=== PATIENT | female | born 1965 | race Caucasian/White ===

== ENCOUNTER 2016-07-24 13:14 | Emergency (ER) | payer MEDICAID ==
[2016-07-24 13:33] VITALS: BP 148/93
--- NOTE | 2016-07-24 14:24 | EDM.PDOC ---
ED HPI GENERAL MEDICAL PROBLEM - General Chief Complaint: General Stated Complaint: SORES ALL OVER BODY Time Seen by Provider: 07/24/16 13:45 Source of Information: Reports: Patient History Limitations: Reports: No limitations - History of Present Illness INITIAL COMMENTS - FREE TEXT/NARRATIVE: 51-year-old female who is new to the area has broken out in blistering weeping rashes on her hands, under her right arm and in the suprapubic area. She was treated with Diflucan which hasn't helped, she has been exposed to MRSA. No fevers or chills. Onset: gradual (Over the last 6-7 days) Associated Symptoms: Denies: fever/chills Generalized Pain Score (Numeric/FACES): 10 - Related Data Allergies Allergy/AdvReac Type Severity Reaction Status Date / Time aspirin Allergy Cannot Verified 07/24/16 13:35 Remember Penicillins Allergy Cannot Verified 07/24/16 13:35 Remember Sulfa (Sulfonamide Allergy Hives Verified 07/24/16 13:35 Antibiotics) Home Meds: Home Meds Albuterol Sulfate [Ventolin Hfa] 108 mcg INH Q6H PRN 07/24/16 [History] Albuterol/Ipratropium [DuoNeb 3.0-0.5 MG/3 ML] 3 ml INH Q6H 07/24/16 [History] Cetirizine [ZyrTEC] 10 mg PO DAILY 07/24/16 [History] Ibuprofen [Motrin] 800 mg PO Q8H PRN 07/24/16 [History] Mometasone/Formoterol [Dulera 200-5 MCG] 2 puff INH BID 07/24/16 [History] Montelukast Sodium [Singulair] 10 mg PO BEDTIME 07/24/16 [History] Nystatin [Nystatin Crm] 1 applic TOP TID 07/24/16 [History] Past Medical History Respiratory History: Reports: COPD, Other (see below) Other Respiratory History: growths in lungs Gastrointestinal History: Reports: Cholelithiasis Neurological History: Reports: Migraines Psychiatric History: Reports: PTSD - Infectious Disease History Infectious Disease History: Reports: None - Past Surgical History Respiratory Surgical History: Reports: None GI Surgical History: Reports: Cholecystectomy Neurological Surgical History: Reports: None Musculoskeletal Surgical History: Reports: None, Knee replacement Social & Family History - Tobacco Use Smoking Status *Q: Current Some Day Smoker Years of Tobacco use: 30 Packs/Tins Daily: 1 Used Tobacco, but Quit: Yes Month Tobacco Last Used: febuary Second Hand Smoke Exposure: No - Caffeine Use Caffeine Use: Reports: Coffee, Soda, Tea - Recreational Drug Use Recreational Drug Use: No ED ROS GENERAL - Review of Systems Review Of Systems: See Below Constitutional: Denies: fever, chills Respiratory: Denies: shortness of breath GI/Abdominal: Denies: Nausea, Vomiting : Reports: no symptoms Musculoskeletal: Reports: other (Slight increased swelling in her left knee but no redness or warmth) ED EXAM, GENERAL - Physical Exam Exam: See Below Exam Limited By: No limitations General Appearance: alert, no apparent distress Respiratory/Chest: no respiratory distress Neurological: alert, oriented Skin Exam: Other (Patient has reddened papular and vesicular lesions on an erythematous base over the suprapubic area and lower abdomen, also isolated blistering lesions on the right hand and under the right axillary area) Course - Vital Signs Last Recorded V/S: Last Vital Signs Temp 98.9 F 07/24/16 13:31 Pulse 85 07/24/16 13:31 Resp 18 07/24/16 13:31 BP 148/93 H 07/24/16 13:31 Pulse Ox 94 L 07/24/16 13:31 - Orders/Labs/Meds Orders: Active Orders 24 hr Category Date Time Status CULTURE WOUND + SMEAR [RM] Stat Lab 07/24/16 14:22 Results - Re-Assessments/Exams Free Text/Narrative Re-Assessment/Exam: 07/24/16 14:22 Alcohol was rubbed over the lesion on her right hand, clear fluid was expelled and cultured. Patient was placed on clindamycin 300 mg 3 times a day given 10 day supply and should recheck at the clinic to establish primary care in the next 3-5 days. She can return sooner if worsening such as fever or reaction to the medication. Departure - Departure Time of Disposition: 14:49 Disposition: Home, Self-Care 01 Condition: good Clinical Impression: Rash and nonspecific skin eruption Instructions: Rash Referrals: PCP,None [Primary Care Provider] - Forms: ED Department Discharge Care Plan Goals: Take antibiotic 2 pills 3 times a day, keep wounds clean and call the clinic tomorrow morning to establish an appointment for recheck later in the week. Return sooner if worsening such as fever or increased pain or unable to take the medication. - My Orders Last 24 Hours: My Active Orders 07/24/16 14:22 CULTURE WOUND + SMEAR [RM] Stat - Assessment/Plan Last 24 Hours: My Active Orders 07/24/16 14:22 CULTURE WOUND + SMEAR [RM] Stat
== END 2016-07-24 14:50 | disposition home or self-care (01) ==
LOC: JP.ED 13:14
DX: R21 Rash and other nonspecific skin eruption (principal); J44.9 Chronic obstructive pulmonary disease, unspecified; F17.210 Nicotine dependence, cigarettes, uncomplicated; Z90.49 Acquired absence of other specified parts of digestive tract; Z96.659 Presence of unspecified artificial knee joint; Z79.899 Other long term (current) drug therapy; Z88.0 Allergy status to penicillin; Z88.2 Allergy status to sulfonamides; Z88.8 Allergy status to other drugs, medicaments and biological substances
CPT/HCPCS: 87070; 87077; 87205; 99283